=== PATIENT | male | born 1960 ===

== ENCOUNTER 2024-08-08 12:32 | Outpatient (CLI) | payer BC, SELFPAY | END 2024-08-08 12:33 | disposition home or self-care (01) | LOC: WOUND 12:37 | PROVIDERS: PCP Family Medicine; Referring Provider Physician Assistant; Visit Provider Family Medicine | DX: I87.311 Chronic venous hypertension (idiopathic) with ulcer of right lower extremity (principal); L97.812 Non-pressure chronic ulcer of other part of right lower leg with fat layer exposed; E11.621 Type 2 diabetes mellitus with foot ulcer; L97.412 Non-pressure chronic ulcer of right heel and midfoot with fat layer exposed; Z79.4 Long term (current) use of insulin; Z79.84 Long term (current) use of oral hypoglycemic drugs; E66.01 Morbid (severe) obesity due to excess calories; Z68.43 Body mass index [BMI] 50.0-59.9, adult | CPT/HCPCS: 11042; 97597; G0463 ==